=== PATIENT | female | born 1980 | race Caucasian/White ===

== ENCOUNTER 2016-07-01 10:34 | Emergency (ER) | payer MEDICAID ==
[~2016-07-01] VITALS: Ht 180.3 cm; Wt 80.0 kg
[~2016-07-01 10:34] MED LIST: DILA100C PO; GABA300C3 PO; PAXI30TA7 PO; TRAZ300T2 PO
[2016-07-01 10:36] VITALS: BP 132/73; PULSE 116; RESP 18; TEMP 98.2; O2SAT 97
[2016-07-01] MEDS ORDERED: VANCOMYCIN INJ 1,000 MG in SODIUM CHLOR 0.9% 250 ML INJ 250 ML IV ONE (11:30)
[2016-07-01] MEDS ORDERED: PAXI30TA7 PO (11:32)
--- NOTE | 2016-07-01 11:33 | PD ---
HPI Chief Complaint: Skin Problem Time Seen by Provider: 11:26 Travel History International Travel<30 days: No Contact w/Intl Traveler<30days: No Traveled to known affect area: No History of Present Illness HPI This patient complains of infection in her left forearm. She is an IV drug abuser that injected some cocaine into her arm and missed her vein. It became reddened and painful and then a boil popped up yesterday. She denies fever. No active drainage. Other than depression she denies any other health problems. Symptoms severity is moderate. Duration 3 days. No alleviating factors. PFSH Past Medical History Blood Disorders: No Bipolar Disorder: Yes Anxiety: Yes Depression: Yes Diabetes: No Diminished Hearing: No Genitourinary: Yes Hypertension: Yes Kidney Stones: Yes Musculoskeletal: Yes (SCOLIOSIS, spinal stenosis) Neurologic: Yes Psychiatric: Yes Immunizations Current: Yes Migraines: Yes Myocardial Infarction: No Seizures: Yes (last seizure 10/16/14) ?: Not LMP: 06/10/16 : 1 Para: 1 Past Surgical History Genitourinary Surgery: Yes (shunt to kidney placed and removed) Social History Alcohol Use: Yes (OCCASIONALLY) Tobacco Use: Yes (1 PPD) Substance Use: No Allergies-Medications (Allergen,Severity, Reaction): Coded Allergies: Dust (Verified Allergy, Severe, 07/01/16) Cultivated Oat Pollen (Verified Allergy, Intermediate, 07/01/16) Cipro (Verified Adverse Reaction, Severe, REACTS WITH HER DEPRESSION MEDS , 07/01/16) Prednisone (Verified Adverse Reaction, Severe, MAKES HER DEPRESSION WORSE , 07/01/16) Benadryl (Verified Adverse Reaction, Intermediate, sleepy , 07/01/16) denies any problems Reported Meds & Prescriptions Reported Meds & Active Scripts Active Doxycycline Hyclate 100 Mg Cap 100 Mg PO BID Bactrim DS (Sulfamethoxazole-Trimethoprim) 800-160 Mg Tab 1 Tab PO BID Reported Paxil (Paroxetine HCl) 30 Mg Tab 30 Mg PO DAILY Review of Systems General / Constitutional: No: Fever Eyes: No: Visual changes HENT: No: Headaches Cardiovascular: No: Chest Pain or Discomfort Respiratory: No: Shortness of Breath Gastrointestinal: No: Abdominal Pain Genitourinary: No: Dysuria Musculoskeletal: Positive: Pain Skin: No Rash Neurologic: No: Weakness Psychiatric: Positive: Substance Abuse, No: Depression Endocrine: No: Polydipsia Hematologic/Lymphatic: No: Easy Bruising Physical Exam Narrative GENERAL: Well-nourished, well-developed patient with left forearm infection. SKIN: Warm and dry. HEAD: Atraumatic. Normocephalic. EYES: Pupils equal and round. No scleral icterus. No injection or drainage. ENT: No nasal bleeding or discharge. Mucous membranes pink and moist. NECK: Trachea midline. No JVD. CARDIOVASCULAR: Regular rate and rhythm. No murmur appreciated. RESPIRATORY: No accessory muscle use. Clear to auscultation. Breath sounds equal bilaterally. GASTROINTESTINAL: Abdomen soft, non-tender, nondistended. Hepatic and splenic margins not palpable. MUSCULOSKELETAL: No obvious deformities. No clubbing. No cyanosis. There is macular erythema and warmth and tenderness of the left proximal forearm and an abscess there as well. No active drainage but there is a fluctuant region. No ascending lymphangitis or tenseness of compartments. Neurovascularly intact NEUROLOGICAL: Awake and alert. No obvious cranial nerve deficits. Motor grossly within normal limits. Normal speech. PSYCHIATRIC: Appropriate mood and affect; insight and judgment poor. Data Data Last Documented VS Vital Signs Date Time Temp Pulse Resp B/P Pulse Ox O2 Delivery O2 Flow Rate FiO2 07/01/16 11:28 18 07/01/16 10:36 98.2 116 132/73 97 Orders Vancomycin Inj (Vancomycin Inj) (07/01/16 11:30) Iv Access Insert/Monitor (07/01/16 11:26) Complete Blood Count With Diff (07/01/16 11:26) Basic Metabolic Panel (Bmp) (07/01/16 11:26) Oxycodone-Acetamin 5-325 Mg (Percocet (07/01/16 12:45) Labs Laboratory Tests Test 07/01/16 12:02 White Blood Count 12.0 TH/MM3 Red Blood Count 4.40 MIL/MM3 Hemoglobin 14.4 GM/DL Hematocrit 42.7 % Mean Corpuscular Volume 97.0 FL Mean Corpuscular Hemoglobin 32.7 PG Mean Corpuscular Hemoglobin 33.8 % Concent Red Cell Distribution Width 13.2 % Platelet Count 211 TH/MM3 Mean Platelet Volume 8.9 FL Neutrophils (%) (Auto) 76.6 % Lymphocytes (%) (Auto) 13.7 % Monocytes (%) (Auto) 7.7 % Eosinophils (%) (Auto) 1.5 % Basophils (%) (Auto) 0.5 % Neutrophils # (Auto) 9.2 TH/MM3 Lymphocytes # (Auto) 1.6 TH/MM3 Monocytes # (Auto) 0.9 TH/MM3 Eosinophils # (Auto) 0.2 TH/MM3 Basophils # (Auto) 0.1 TH/MM3 CBC Comment DIFF FINAL Differential Comment Sodium Level 139 MEQ/L Potassium Level 4.2 MEQ/L Chloride Level 105 MEQ/L Carbon Dioxide Level 28.1 MEQ/L Anion Gap 6 MEQ/L Blood Urea Nitrogen 13 MG/DL Creatinine 0.75 MG/DL Estimat Glomerular Filtration 88 ML/MIN Rate Random Glucose 82 MG/DL Calcium Level 8.7 MG/DL [facility] Medical Decision Making Medical Screen Exam Complete: Yes Emergency Medical Condition: Yes Medical Record Reviewed: Yes Differential Diagnosis abscess, cellulitis, lymphangitis Narrative Course I have reviewed the patient's electronic medical record. This patient has a left forearm abscess from IV drug injection. IV placed I gave her 1 g IV vancomycin CBC is normal other than minimal leukocytosis 12,000 Metabolic profile is normal EDI Dey performed incision and drainage on the abscess. Specimen was sent for culture On reassessment she is doing well. I gave HER-2 pain pills. I don't feel she requires inpatient care at this time. I wrote her 10 days of both doxycycline and Bactrim DS and she will return in 48 hours if she has not seen improvement. No clinical suspicion of endocarditis. She has no fever or chest symptoms Diagnosis Primary Impression: Abscess of left arm Additional Impression: IV drug abuse Additional Instructions: The patient was advised to follow up with their physician and return if they worsen. The patient was warned about potential sedation for the medications they will receive on prescription. Stop injecting drugs, consider [facility] services Med/Other Pt SpecificInfo: Prescription(s) given Scripts Doxycycline Hyclate 100 Mg [id number] Mg PO BID #20 CAP Ref 0 Prov:Suresh Chavez MD 07/01/16 Sulfamethoxazole-Trimethoprim (Bactrim DS)800-160 Mg Tab1 Tab PO BID #20 TAB Ref 0 Prov:Suresh Chavez MD 07/01/16 Disposition: 01 DISCHARGE HOME Condition: Stable Suresh Chavez MD Jul 01, 2016 11:33
[2016-07-01 12:34] LABS: AUTOMATED NEUTROPHIL # 9.2 TH/MM3 (1.8-7.7); BASOPHIL # 0.1 TH/MM3 (0-0.2); BASOPHIL % 0.5 % (0.0-2.0); EOSINOPHIL # 0.2 TH/MM3 (0-0.4); EOSINOPHIL % 1.5 % (0.0-4.0); HEMATOCRIT 42.7 % (35.0-46.0); HEMO FLAGS DIFF FINAL; LYMPH % 13.7 % (9.0-44.0); LYMPHOCYTE # 1.6 TH/MM3 (1.0-4.8); MEAN CORPUSCULAR HEMOGLOBIN 32.7 PG (27.0-34.0); MEAN CORPUSCULAR HGB CONC 33.8 % (32.0-36.0); MONO % 7.7 % (0.0-8.0); NEUT % 76.6 % (16.0-70.0); PLATELET COUNT 211 TH/MM3 (150-450); RED CELL DISTRIBUTION WIDTH 13.2 % (11.6-17.2)
[2016-07-01] MEDS ORDERED: oxyCODONE/ACETAMINOPHEN 5 MG/325 MG TAB PO ONE (12:45)
[2016-07-01 12:47] LABS: BICARBONATE 28.1 MEQ/L (21.0-32.0)
[2016-07-01 12:48] LABS: POTASSIUM 4.2 MEQ/L (3.5-5.1)
[2016-07-01] MEDS ORDERED: BACT800T5 PO (13:29)
[2016-07-01] MEDS ORDERED: DOXY100C PO (13:29)
[2016-07-01] MEDS ORDERED: TYLETAB34 PO (13:44)
[2016-07-01 13:50] VITALS: RESP 18
--- NOTE | 2016-07-01 18:49 | PD ---
Physical Exam Date Seen by Provider: Jul 01, 2016 Time Seen by Provider: 11:30 Narrative 35 yr old female seen by Dr. Chavez. I was asked to perform I& D of abscess left forearm. Data Data Last Documented VS Vital Signs Date Time Temp Pulse Resp B/P Pulse Ox O2 Delivery O2 Flow Rate FiO2 07/01/16 13:50 18 07/01/16 10:36 98.2 116 132/73 97 Orders Vancomycin Inj (Vancomycin Inj) (07/01/16 11:30) Iv Access Insert/Monitor (07/01/16 11:26) Complete Blood Count With Diff (07/01/16 11:26) Basic Metabolic Panel (Bmp) (07/01/16 11:26) Oxycodone-Acetamin 5-325 Mg (Percocet (07/01/16 12:45) Labs Laboratory Tests Test 07/01/16 12:02 White Blood Count 12.0 TH/MM3 Red Blood Count 4.40 MIL/MM3 Hemoglobin 14.4 GM/DL Hematocrit 42.7 % Mean Corpuscular Volume 97.0 FL Mean Corpuscular Hemoglobin 32.7 PG Mean Corpuscular Hemoglobin 33.8 % Concent Red Cell Distribution Width 13.2 % Platelet Count 211 TH/MM3 Mean Platelet Volume 8.9 FL Neutrophils (%) (Auto) 76.6 % Lymphocytes (%) (Auto) 13.7 % Monocytes (%) (Auto) 7.7 % Eosinophils (%) (Auto) 1.5 % Basophils (%) (Auto) 0.5 % Neutrophils # (Auto) 9.2 TH/MM3 Lymphocytes # (Auto) 1.6 TH/MM3 Monocytes # (Auto) 0.9 TH/MM3 Eosinophils # (Auto) 0.2 TH/MM3 Basophils # (Auto) 0.1 TH/MM3 CBC Comment DIFF FINAL Differential Comment Sodium Level 139 MEQ/L Potassium Level 4.2 MEQ/L Chloride Level 105 MEQ/L Carbon Dioxide Level 28.1 MEQ/L Anion Gap 6 MEQ/L Blood Urea Nitrogen 13 MG/DL Creatinine 0.75 MG/DL Estimat Glomerular Filtration 88 ML/MIN Rate Random Glucose 82 MG/DL Calcium Level 8.7 MG/DL [facility] Medical Record Reviewed: Yes Supervised Visit with NAYELI: Yes Differential Diagnosis abscess, cellulitis Narrative Course 35 yr old IV drug user with left forearm abscess. I was asked to perform I& D Procedures Procedure Narrative SKIN: There is an indurated area in the left forearm which measures about 3 cm in diameter. It is fluctuant.. There is a zone of inflammation around it but no lymphangitis. Area was cleaned with betadine and 3 cc of 1% lidocaine used for local infiltration. After appropriate anesthesia, 11 blade was used to make small incision in the abscess and over 7 cc of purulent fluid was expelled from the site. I collected a sample for culture. Area was then cleaned with saline and sterile dressing was applied. I discussed proper cleaning with the patient. I also instructed her on how to apply clean dressings at least twice a day. Diagnosis Primary Impression: Abscess of left arm Additional Impression: IV drug abuse Patient Instructions: General Instructions, Abscess (ED) Departure Forms: Tests/Procedures Additional Instruction: The patient was advised to follow up with their physician and return if they worsen. The patient was warned about potential sedation for the medications they will receive on prescription. Stop injecting drugs, consider [facility] services Scripts Acetaminophen-Codeine (Tylenol-Codeine #3)300-30 mg Tab1 Tab PO Q6HR PRN (PAIN) #12 TAB Ref 0 Prov:Suresh Chavez MD 07/01/16 Doxycycline Hyclate 100 Mg [id number] Mg PO BID #20 CAP Ref 0 Prov:Suresh Chavez MD 07/01/16 Sulfamethoxazole-Trimethoprim (Bactrim DS)800-160 Mg Tab1 Tab PO BID #20 TAB Ref 0 Prov:Suresh Chavez MD 07/01/16 Disposition: 01 DISCHARGE HOME Condition: Stable Yissel Johnson Jul 01, 2016 18:49
== END 2016-07-01 13:49 | disposition home or self-care (01) ==
LOC: NEPD 10:34
DX: L02.414 Cutaneous abscess of left upper limb (principal); F19.10 Other psychoactive substance abuse, uncomplicated; I10 Essential (primary) hypertension; F17.200 Nicotine dependence, unspecified, uncomplicated; Z87.448 Personal history of other diseases of urinary system; Z87.442 Personal history of urinary calculi; Z87.39 Personal history of other diseases of the musculoskeletal system and connective tissue; Z86.69 Personal history of other diseases of the nervous system and sense organs; Z86.59 Personal history of other mental and behavioral disorders
CPT/HCPCS: 10060; 80048; 85025; 96365; 99283; J3370; J7050

== ENCOUNTER 2016-10-08 17:40 | Observation (INO) | payer MEDICAID ==
[~2016-10-08] VITALS: Ht 180.3 cm; Wt 91.0 kg
[~2016-10-08 17:40] MED LIST changes: +BACT800T5 PO; -DILA100C PO; +DOXY100C PO; -GABA300C3 PO; -TRAZ300T2 PO; +TYLETAB34 PO
[2016-10-08 17:43] VITALS: PULSE 96; RESP 14; O2SAT 100
[2016-10-08] MEDS ORDERED: NEUR100C PO (17:50)
[2016-10-08] MEDS ORDERED: SODIUM CHLORIDE 0.9% FLUSH 10 ML FLUSH IVF PRN (18:00)
[2016-10-08] MEDS ORDERED: SODIUM CHLOR 0.9% 1000 ML INJ 1,000 ML IV ONE (18:15)
--- NOTE | 2016-10-08 18:15 | PD ---
HPI Chief Complaint: OD/ Ingestion Time Seen by Provider: 18:07 Travel History International Travel<30 days: No Contact w/Intl Traveler<30days: No Traveled to known affect area: No History of Present Illness HPI Patient comes in via EMS after being found unresponsive by her 12-year-old daughter at home. Patient was given Narcan in the field by EMS, which allowed the patient to wake up and have a GCS of 15. Patient reports that her boyfriend and her got to the vehicle with a male where she did "5 lines of heroin and then a bump". Patient states male then gave him additional heroin to go home. Patient states that when she got home they did additional heroin. Patient denies any chest pain, shortness breath, headache, nausea, vomiting, abdominal pain, or other medical concerns at this time medically. Patient denies any intentional overdose or suicidal ideations. Patient states was purely accidental overdose. PFSH Past Medical History Blood Disorders: No Bipolar Disorder: Yes Anxiety: Yes Depression: Yes Diabetes: No Diminished Hearing: No Genitourinary: Yes Hypertension: Yes Kidney Stones: Yes Musculoskeletal: Yes (SCOLIOSIS, spinal stenosis) Neurologic: Yes Psychiatric: Yes Immunizations Current: Yes Migraines: Yes Myocardial Infarction: No Seizures: Yes (last seizure 10/16/14) ?: Not LMP: 09/30/16 : 1 Para: 1 Past Surgical History Genitourinary Surgery: Yes (shunt to kidney placed and removed) Social History Alcohol Use: Yes (OCCASIONALLY) Tobacco Use: Yes (1 PPD) Substance Use: Yes (cocaine shooting up;heroin weekly) Allergies-Medications (Allergen,Severity, Reaction): Coded Allergies: Dust (Verified Allergy, Severe, 10/08/16) Cultivated Oat Pollen (Verified Allergy, Intermediate, 10/08/16) Cipro (Verified Adverse Reaction, Severe, REACTS WITH HER DEPRESSION MEDS , 10/08/16) Prednisone (Verified Adverse Reaction, Severe, MAKES HER DEPRESSION WORSE , 10/08/16) Benadryl (Verified Adverse Reaction, Intermediate, sleepy , 10/08/16) denies any problems Reported Meds & Prescriptions Reported Meds & Active Scripts Active Reported Neurontin (Gabapentin) Unknown Strength Cap Unknown Dose PO HS Paxil (Paroxetine HCl) 30 Mg Tab 30 Mg PO DAILY Review of Systems Except as stated in HPI: all other systems reviewed are Neg Physical Exam Narrative GENERAL: Well-developed, overly nourished, in no acute distress, and non-ill appearing. SKIN: Focused skin assessment warm and dry. HEAD: Atraumatic. Normocephalic. EYES: Pupils equal and round. EOMI. No scleral icterus. No injection or drainage. ENT: No nasal bleeding or discharge. Mucous membranes pink and moist. NECK: Trachea midline. No JVD. Supple. No nuclear rigidity. CARDIOVASCULAR: Regular rate and rhythm. No murmur appreciated. RESPIRATORY: No accessory muscle use. No respiratory distress. Clear to auscultation. Breath sounds equal bilaterally. GASTROINTESTINAL: Abdomen soft, non-tender, nondistended. Hepatic and splenic margins not palpable. No pulsatile mass. MUSCULOSKELETAL: No obvious deformities. No clubbing. No cyanosis. No edema. Full range of motion. NEUROLOGICAL: Awake and alert. No obvious cranial nerve deficits. Motor grossly within normal limits. Normal speech. PSYCHIATRIC: Appropriate mood and affect; insight and judgment normal. Data Data Last Documented VS Vital Signs Date Time Temp Pulse Resp B/P Pulse Ox O2 Delivery O2 Flow Rate FiO2 10/08/16 18:40 14 98 Nasal Cannula 2 10/08/16 17:43 96 Orders Electrocardiogram (10/08/16 ) Iv Access Insert/Monitor (10/08/16 17:59) Ecg Monitoring (10/08/16 17:59) Oximetry (10/08/16 17:59) Sodium Chloride 0.9% Flush (Ns Flush) (10/08/16 18:00) Sodium Chlor 0.9% 1000 Ml Inj (Ns 1000 M (10/08/16 18:15) Naloxone Inj (Narcan Inj) (10/08/16 19:15) Basic Metabolic Panel (Bmp) (10/08/16 19:03) Complete Blood Count With Diff (10/08/16 19:03) Magnesium (Mg) (10/08/16 19:03) Naloxone Inj (Narcan Inj) (10/08/16 19:45) End Tidal Co2 (Etco2) (10/08/16 ) Admit Order (Ed Use Only) (10/08/16 20:08) Labs Laboratory Tests Test 10/08/16 17:55 White Blood Count 6.7 TH/MM3 Red Blood Count 3.82 MIL/MM3 Hemoglobin 12.2 GM/DL Hematocrit 37.5 % Mean Corpuscular Volume 98.0 FL Mean Corpuscular Hemoglobin 31.8 PG Mean Corpuscular Hemoglobin 32.5 % Concent Red Cell Distribution Width 13.5 % Platelet Count 192 TH/MM3 Mean Platelet Volume 9.3 FL Neutrophils (%) (Auto) 68.9 % Lymphocytes (%) (Auto) 23.6 % Monocytes (%) (Auto) 5.6 % Eosinophils (%) (Auto) 1.5 % Basophils (%) (Auto) 0.4 % Neutrophils # (Auto) 4.6 TH/MM3 Lymphocytes # (Auto) 1.6 TH/MM3 Monocytes # (Auto) 0.4 TH/MM3 Eosinophils # (Auto) 0.1 TH/MM3 Basophils # (Auto) 0.0 TH/MM3 CBC Comment DIFF FINAL Differential Comment Sodium Level 142 MEQ/L Potassium Level 3.5 MEQ/L Chloride Level 107 MEQ/L Carbon Dioxide Level 23.6 MEQ/L Anion Gap 11 MEQ/L Blood Urea Nitrogen 18 MG/DL Creatinine 0.81 MG/DL Estimat Glomerular Filtration 81 ML/MIN Rate Random Glucose 122 MG/DL Calcium Level 8.0 MG/DL Magnesium Level 2.5 MG/DL MDM Medical Decision Making Medical Screen Exam Complete: Yes Emergency Medical Condition: Yes Interpretation(s) EKG reviewed by Dr. Boss shows sinus rhythm with ventricular rate of 98. No STEMI. Differential Diagnosis Accidental overdose, intentional overdose, arrhythmia, other Narrative Course Patient was seen and examined. EKG was obtained and reviewed. Patient was placed on a monitor and IV was established. Patient will be monitored in the ER until 2200 when Narcan will warn off for stability. 1929 patient is reevaluated by Dr. Cruz found to be slightly less responsive O2 slipping into the upper 80s low 90s. Dr. Cruz ordered additional Narcan. Patient will be admitted pending labs for observation. Physician Communication Physician Communication [address] Abraham, resident on-call, who is agreeable to admit patient for Dr. Membreno. Diagnosis Primary Impression: Overdose Qualified Code: T50.901A - Overdose, accidental or unintentional, initial encounter Admitting Information Admitting Physician Requests: Observation Condition: Stable Kevan Zhang October 08, 2016 18:15 Kevan Zhang October 08, 2016 18:15
[2016-10-08 18:40] VITALS: RESP 14; O2SAT 98
[2016-10-08 19:00] VITALS: BP 91/51; PULSE 82; RESP 14; O2SAT 94
[2016-10-08] MEDS ORDERED: NALOXONE HCL 0.4 MG/ML AMP IV PUSH ONE ×2 (19:15→19:45)
[2016-10-08 19:27] LABS: AUTOMATED NEUTROPHIL # 4.6 TH/MM3 (1.8-7.7); BASOPHIL % 0.4 % (0.0-2.0); EOSINOPHIL # 0.1 TH/MM3 (0-0.4); EOSINOPHIL % 1.5 % (0.0-4.0); HEMATOCRIT 37.5 % (35.0-46.0); HEMO FLAGS DIFF FINAL; LYMPH % 23.6 % (9.0-44.0); LYMPHOCYTE # 1.6 TH/MM3 (1.0-4.8); MEAN CORPUSCULAR HEMOGLOBIN 31.8 PG (27.0-34.0); MEAN CORPUSCULAR HGB CONC 32.5 % (32.0-36.0); MONO % 5.6 % (0.0-8.0); NEUT % 68.9 % (16.0-70.0); PLATELET COUNT 192 TH/MM3 (150-450); RED BLOOD COUNT 3.82 MIL/MM3 (4.00-5.30); RED CELL DISTRIBUTION WIDTH 13.5 % (11.6-17.2); WHITE BLOOD COUNT 6.7 TH/MM3 (4.0-11.0)
--- NOTE | 2016-10-08 19:42 | PD ---
Physical Exam Narrative I, Dr. Cruz, have reviewed the advance practice practitioner's documentation and am in agreement, met with the patient face to face, made the diagnosis, and the medical decision making was done by me. *My assessment and Findings: Opiate overdose Pt was reevaluated at bedside and RR is 8 so 0.4mg narcan IV given. Pt was awake but quickly went back to RR of 8 so another 0.4mg narcan IV ordered. Pt will be admitted for observation for opiate overdose. Data Data Last Documented VS Vital Signs Date Time Temp Pulse Resp B/P Pulse Ox O2 Delivery O2 Flow Rate FiO2 10/08/16 20:00 80 14 93/55 96 Nasal Cannula 2 Orders Electrocardiogram (10/08/16 ) Iv Access Insert/Monitor (10/08/16 17:59) Ecg Monitoring (10/08/16 17:59) Oximetry (10/08/16 17:59) Sodium Chloride 0.9% Flush (Ns Flush) (10/08/16 18:00) Sodium Chlor 0.9% 1000 Ml Inj (Ns 1000 M (10/08/16 18:15) Naloxone Inj (Narcan Inj) (10/08/16 19:15) Basic Metabolic Panel (Bmp) (10/08/16 19:03) Complete Blood Count With Diff (10/08/16 19:03) Magnesium (Mg) (10/08/16 19:03) Naloxone Inj (Narcan Inj) (10/08/16 19:45) End Tidal Co2 (Etco2) (10/08/16 ) Admit Order (Ed Use Only) (10/08/16 20:08) Labs Laboratory Tests Test 10/08/16 17:55 White Blood Count 6.7 TH/MM3 Red Blood Count 3.82 MIL/MM3 Hemoglobin 12.2 GM/DL Hematocrit 37.5 % Mean Corpuscular Volume 98.0 FL Mean Corpuscular Hemoglobin 31.8 PG Mean Corpuscular Hemoglobin 32.5 % Concent Red Cell Distribution Width 13.5 % Platelet Count 192 TH/MM3 Mean Platelet Volume 9.3 FL Neutrophils (%) (Auto) 68.9 % Lymphocytes (%) (Auto) 23.6 % Monocytes (%) (Auto) 5.6 % Eosinophils (%) (Auto) 1.5 % Basophils (%) (Auto) 0.4 % Neutrophils # (Auto) 4.6 TH/MM3 Lymphocytes # (Auto) 1.6 TH/MM3 Monocytes # (Auto) 0.4 TH/MM3 Eosinophils # (Auto) 0.1 TH/MM3 Basophils # (Auto) 0.0 TH/MM3 CBC Comment DIFF FINAL Differential Comment Sodium Level 142 MEQ/L Potassium Level 3.5 MEQ/L Chloride Level 107 MEQ/L Carbon Dioxide Level 23.6 MEQ/L Anion Gap 11 MEQ/L Blood Urea Nitrogen 18 MG/DL Creatinine 0.81 MG/DL Estimat Glomerular Filtration 81 ML/MIN Rate Random Glucose 122 MG/DL Calcium Level 8.0 MG/DL Magnesium Level 2.5 MG/DL Total Creatine Kinase 202 U/L Creatine Kinase MB 2.0 NG/ML Creatine Kinase MB % 1.0 % Troponin I LESS THAN 0.02 NG/ML Acetaminophen Level 2.4 MCG/ML Ethyl Alcohol Level LESS THAN 3 MG/DL MDM Supervised Visit with NAYELI: Yes Diagnosis Primary Impression: Opiate overdose Qualified Code: T40.604A - Opiate overdose, undetermined intent, initial encounter Admitting Information Admitting Physician Requests: Observation Gertrudis Cruz DO October 08, 2016 19:41
[2016-10-08 19:54] LABS: BICARBONATE 23.6 MEQ/L (21.0-32.0); MAGNESIUM 2.5 MG/DL (1.5-2.5); POTASSIUM 3.5 MEQ/L (3.5-5.1)
[2016-10-08 20:00] VITALS: BP 93/55; PULSE 80; RESP 14; O2SAT 96
--- NOTE | 2016-10-08 20:36 | HHI.HP ---
[facility] Service Family Medicine Primary Care Physician Juan Daniel Huffman MD Admission Diagnosis accidental overdose Diagnoses: International Travel<30 Days: No Contact w/Intl Traveler<30days: No Known Affected Area: No History of Present Illness Patient is a 35-year-old female with unknown PMH but a history of extensive IV drug use who presents to the ED after opiate overdose. Patient does not provide history given she is somnolent, but does note that she is not in pain and that she "was stupid." Per EVAC report and ER documentation, patient was found by her 12-year-old daughter unresponsive at home. She was given 2.8 mg Narcan in the field, and was given 0.4 mg Narcan 2 in the ED. After Narcan administration , patient was alert. At time of initial ED evaluation, she denied chest pain, shortness of breath, headache, nausea, vomiting, abdominal pain, and other medical concerns. She also denied intent at that time. At this evaluation, patient only stated states that she "was stupid" and that she "drank too much." She also endorses that she uses IV drugs and injects into the arms only. Family history is not obtained given patient condition. Review of Systems ROS Limitations: Clinical Condition, Intoxication Respiratory: DENIES: Shortness of breath Cardiovascular: DENIES: Chest pain Past Family Social History Past Medical History Patient states she has a history of seizures and takes Keppra. Per EMR, last seizure was September 2014 Per EMR, she has bipolar disorder, depression, anxiety, hypertension, history of stones, and history of migraines Past Surgical History Per EMR, patient had a stent placed and removed Reported Medications Reported Meds & Active Scripts Active Reported Neurontin (Gabapentin) Unknown Strength Cap Unknown Dose PO HS Paxil (Paroxetine HCl) 30 Mg Tab 30 Mg PO DAILY (Patient states she takes Keppra but does not state dose or last use) Allergies: Coded Allergies: Dust (Verified Allergy, Severe, 10/08/16) Cultivated Oat Pollen (Verified Allergy, Intermediate, 10/08/16) Cipro (Verified Adverse Reaction, Severe, REACTS WITH HER DEPRESSION MEDS , 10/08/16) Prednisone (Verified Adverse Reaction, Severe, MAKES HER DEPRESSION WORSE , 10/08/16) Benadryl (Verified Adverse Reaction, Intermediate, sleepy , 10/08/16) denies any problems Active Ordered Medications Inpatient Medications Acetaminophen (Tylenol) 650 mg Q4H PRN PO TEMP > 100.4; Start 10/08/16 at 20:45 Heparin Sodium (Porcine) (Heparin Inj) 5,000 units Q12H SQ ; Start 10/08/16 at 20:45; Status UNV Naloxone HCl (Narcan Inj) 0.4 mg UNSCH PRN IV SEE LABEL COMMENTS; Start at 20:45 Naloxone HCl 0.4 mg 0.4 mg ONCE ONCE IV PUSH Last administered on 10/08/16t 19 :43; Start 10/08/16 at 19:45; Stop 10/08/16 at 19:46; Status DC Ondansetron HCl (Zofran Inj) 4 mg Q6H PRN IVP NAUSEA OR VOMITING; Start at 20:45 Sodium Chloride (NS 1000 ml Inj) 1,000 ml @ 100 mls/hr Q10H IV ; Start at 21:00 Sodium Chloride (NS Flush) 2 ml BID IV FLUSH ; Start 10/08/16 at 21:00 Family History Not obtained due to patient condition Social History Patient has a history of IV drug use, reportedly using heroin and alcohol today She has a 12-year-old daughter who found her unresponsive today Physical Exam Vital Signs Vital Signs Date Time Temp Pulse Resp B/P Pulse Ox O2 Delivery O2 Flow Rate FiO2 10/08/16 18:40 14 98 Nasal Cannula 2 10/08/16 17:43 96 14 100 Physical Exam GENERAL: Patient is a well-nourished, unkempt female lying in bed sleeping. She is arousable to light sternal rub but not to voice. She has wet the bed. SKIN: Cool and dry. The left arm has a 1 inch area of sclerotic brachial vein, multiple track chavez. The right arm has multiple scratches and track chavez HEAD: Atraumatic. Normocephalic. EYES: Pupils equal and round, approximately 4 mm, reactive. No scleral icterus. No injection or drainage. ENT: No nasal bleeding or discharge. Mucous membranes pink and moist. Uvula is midline and tonsils are without exudate or erythema NECK: Trachea midline. No JVD. No lymphadenopathy noted. CARDIOVASCULAR: Regular rate and rhythm. No murmurs auscultated. RESPIRATORY: No accessory muscle use. Pressures were rate approximately 11 with sleeping, approximately 16 when awake. Clear to auscultation without crackles or wheezes. GASTROINTESTINAL: Abdomen soft, non-tender, nondistended. Bowel sounds are normal in all quadrants, not hypoactive. Hepatic and splenic margins not palpable. MUSCULOSKELETAL: Extremities without clubbing, cyanosis, or edema. No obvious deformities. NEUROLOGICAL: Awake and alert. Oriented to place and context. Unable to perform cranial nerve exam due to patient cooperation. Patient is spontaneously moving all extremities and cooperates with lung auscultation on the back. Five out of 5 muscle strength in advertising display rotator strength and lower extremities. Speech appears slurred. PSYCHIATRIC: Unable to fully assess. Patient states she was "stupid". She does not answer whether she had suicidal intent with heroin use during my interview but denied it during ED examination Laboratory Laboratory Tests Test 10/08/16 17:55 White Blood Count 6.7 Red Blood Count 3.82 Hemoglobin 12.2 Hematocrit 37.5 Mean Corpuscular Volume 98.0 Mean Corpuscular Hemoglobin 31.8 Mean Corpuscular Hemoglobin 32.5 Concent Red Cell Distribution Width 13.5 Platelet Count 192 Mean Platelet Volume 9.3 Neutrophils (%) (Auto) 68.9 Lymphocytes (%) (Auto) 23.6 Monocytes (%) (Auto) 5.6 Eosinophils (%) (Auto) 1.5 Basophils (%) (Auto) 0.4 Neutrophils # (Auto) 4.6 Lymphocytes # (Auto) 1.6 Monocytes # (Auto) 0.4 Eosinophils # (Auto) 0.1 Basophils # (Auto) 0.0 CBC Comment DIFF FINAL Differential Comment Sodium Level 142 Potassium Level 3.5 Chloride Level 107 Carbon Dioxide Level 23.6 Anion Gap 11 Blood Urea Nitrogen 18 Creatinine 0.81 Estimat Glomerular Filtration 81 Rate Random Glucose 122 Calcium Level 8.0 Magnesium Level 2.5 Result Diagram: 10/08/16 1755 10/08/16 1755 Assessment and Plan Assessment and Plan 35-year-old female with a history of IV drug use and seizures who presents after being found unresponsive at home. She responded acutely to multiple doses of Narcan, receiving 2.8mg Narcan in the field, and 0.4mg x 2 in the ED. Code Status Full code Discussed Condition With Dr. Nancy Mcmahon, Dr. Bj Abraham Problem List: (1) Overdose Status: Acute Plan: Patient with a history of IVDU presenting after acute opiate overdose, receiving 2.8mg Narcan in the field, and 0.4mg x 2 in the ED. She is now stable but somnolent. Admit to observation for monitored withdrawal. EKG: normal sinus rhythm, rate 98, normal axis and normal intervals. Borderline prolonged QT. No obvious ST or Q-wave abnormalities Plan: * Place in observation. Likely she will withdraw in the short term if she only used heroin as it has a short half-life * Monitor vital signs closely * Continue O2 by nasal cannula, wean to room air with goal O2 sat greater than 92%. * Monitor respiratory status, currently R ~12 when sleeping, R 16 when awake. Saturations 99% on nasal cannula and room air. If evidence of respiratory failure arises, will transfer to [facility]. * Cardiac telemetry given toxin ingestion * Isotonic IV fluid at 100 mL per hour (patient appears well-hydrated but is NPO ) * Narcan 0.4 mg every 2 minutes when necessary for respiratory depression or hypotension * Trend cardiac enzymes including CK-MB * Ordered acetaminophen, EtOH, salicylates, UDS * Initial labs unremarkable, will repeat labs in the morning * There are no signs of infectious processes at this time based on physical exam and vital signs, will defer this workup with low threshold for obtaining blood cultures, CXR, etc. if indicated (2) IV drug abuse Status: Acute Plan: Chronic, multiple ED visits for IVDU-related infections or overdose. Plan: Telephone Solicitor when more awake on effects of drug use, offer resources Case mgmt consulted to assist with management and discharge planning Per EMR, she is on gabapentin and Paxil, unknown dose and unknown last use. Will hold both in addition to reported Keppra (3) History of seizure Status: Chronic Plan: Per patient report. She states she was on Keppra but this is not indicated in most recent EMR records from 06/2016. Plan: * Bedrest * Seizure precautions * Fall precautions * Ativan is ordered under [facility] protocol * Keppra level ordered (4) Fluids/Electrolytes/Nutrition/Prophylaxis Status: Acute Plan: Fluids: NS @ 100ml/hr Electrolytes: monitor and replete as needed Nutrition: NPO DVT Prophylaxis: Heparin 5000U subq q12hr/bilateral SCDs GI Prophylaxis: Not indicated Problem Qualifiers (1) Overdose: Qualified Code: T50.901A - Overdose, accidental or unintentional, initial encounter Amanda Garcia MD R1 October 08, 2016 20:36
[2016-10-08] MEDS ORDERED: NALOXONE HCL 0.4 MG/ML AMP IV PRN (20:45)
[2016-10-08] MEDS ORDERED: SODIUM CHLORIDE 0.9% FLUSH 10 ML FLUSH IV FLUSH PRN (20:45)
[2016-10-08] MEDS ORDERED: ACETAMINOPHEN 325 MG TAB PO PRN (20:45)
[2016-10-08] MEDS ORDERED: ONDANSETRON HCL 4 MG/2 ML VIAL IVP PRN (20:45)
[2016-10-08 21:00] VITALS: BP 93/55; PULSE 80; RESP 16; O2SAT 99
[2016-10-08] MEDS ORDERED: NALOXONE HCL 0.4 MG/ML AMP IV PUSH PRN (21:00)
[2016-10-08] MEDS ORDERED: SODIUM CHLORIDE 0.9% FLUSH 10 ML FLUSH IV FLUSH SCH (21:00)
[2016-10-08] MEDS: HEPARIN SODIUM - SQ 10,000 UNITS/ML VIAL SQ SCH (21:00)
[2016-10-08] MEDS ORDERED: LORazepam 1 MG TAB PO PRN (21:15)
[2016-10-08] MEDS ORDERED: FLUMAZENIL 0.5 MG/5 ML VIAL IV PUSH PRN (21:15)
[2016-10-08] MEDS ORDERED: HALOPERIDOL LACTATE 5 MG/ML AMP IM PRN (21:15)
[2016-10-08] MEDS ORDERED: LORazepam 2 MG TAB PO PRN (21:15)
[2016-10-08] MEDS ORDERED: LORazepam 2 MG/ML VIAL IV PUSH PRN ×3 (21:15)
[2016-10-08 21:19] LABS: ACETAMINOPHEN 2.4 MCG/ML (10.0-30.0); CREATINE KINASE 202 U/L (26-192)
[2016-10-08] MEDS: SODIUM CHLOR 0.9% 1000 ML INJ 1,000 ML IV SCH (22:02)
[2016-10-08] MEDS ORDERED: MULTIVITAMIN INJ 10 ML, THIAMINE INJ 100 MG, FOLIC ACID INJ 1 MG in SODIUM CHLORID 0.9%... IV ONE (23:00)
[2016-10-09] VITALS (7 sets, daily range): BP systolic 91–109; BP diastolic 51–71; PULSE 58–86; RESP 14–18; TEMP 95.7–96.8; O2SAT 86–97
[2016-10-09 01:26] LABS: CREATINE KINASE 171 U/L (26-192)
[2016-10-09] MEDS: LORazepam 2 MG/ML VIAL IV PUSH PRN ×2 (02:51→05:43)
[2016-10-09 05:49] LABS: AUTOMATED NEUTROPHIL # 6.4 TH/MM3 (1.8-7.7); BASOPHIL % 0.4 % (0.0-2.0); EOSINOPHIL # 0.2 TH/MM3 (0-0.4); EOSINOPHIL % 1.7 % (0.0-4.0); HEMO FLAGS DIFF FINAL; LYMPH % 22.3 % (9.0-44.0); LYMPHOCYTE # 2.1 TH/MM3 (1.0-4.8); MEAN CELL VOLUME 97.9 FL (80.0-100.0); MEAN CORPUSCULAR HGB CONC 32.7 % (32.0-36.0); NEUT % 68.6 % (16.0-70.0); PLATELET COUNT 181 TH/MM3 (150-450); RED BLOOD COUNT 3.57 MIL/MM3 (4.00-5.30); RED CELL DISTRIBUTION WIDTH 13.8 % (11.6-17.2); WHITE BLOOD COUNT 9.4 TH/MM3 (4.0-11.0)
[2016-10-09 05:58] LABS: PROTHROMBIN TIME - PATIENT 11.1 SEC (9.8-11.6)
[2016-10-09 06:17] LABS: ANION GAP 6 MEQ/L (5-15); BICARBONATE 26.9 MEQ/L (21.0-32.0); BLOOD UREA NITROGEN 16 MG/DL (7-18); CHLORIDE 109 MEQ/L (98-107); CREATINE KINASE 181 U/L (26-192); GLOMERULAR FILTRATION RATE 127 ML/MIN (>89); SODIUM (NA) 142 MEQ/L (136-145)
[2016-10-09 06:18] LABS: POTASSIUM 4.2 MEQ/L (3.5-5.1)
[2016-10-09] MEDS: SODIUM CHLOR 0.9% 1000 ML INJ 1,000 ML IV SCH (07:00)
--- NOTE | 2016-10-09 07:48 | HHI.DCPOC ---
Discharge Care Plan Diagnosis: (1) IV drug abuse (2) Overdose (3) Opiate overdose (4) History of seizure Goals to Promote Your Health * To prevent worsening of your condition and complications * To maintain your health at the optimal level Directions to Meet Your Goals Take your medications as prescribed Follow your dietary instruction Follow activity as directed Keep your appointments as scheduled Take your immunizations and boosters as scheduled If your symptoms worsen call your PCP, if no PCP go to Urgent Care Center or Emergency Room Smoking is Dangerous to Your Health. Avoid second hand smoke Call the 24-hour hour crisis hotline for domestic abuse at Hilda Etienne MD October 09, 2016 07:47
[2016-10-09] MEDS: HEPARIN SODIUM - SQ 10,000 UNITS/ML VIAL SQ SCH (09:00)
--- NOTE | 2016-10-09 11:06 | HHI.FPPN ---
Subjective Remarks Ana Fisher is a 35yo lady with h/o seizure disorder, bipolar disorder, HTN, and h/o IV drug use admitted under observation after opiate overdose. She was apparently found unresponsive by her 12yo daughter who called 911. She received multiple doses of Narcan. For further details, please see resident H&P. This morning, she reports she feels back to normal. She She is maintaining oxygen saturations on room air. She denies drug use (although boyfriend who is also admitted to our team states that they smoked heroin) and states that she drank too much last night. She requests discharge home. ROS: + muscle aches. No SOB, no chest pain, no nausea, no vomiting, no abdominal pain. All other systems reviewed are negative. PMH/PSxH/SocHx/FamHx: Per resident H&P. Significant for: h/o IV drug use, seizure disorder, h/o kidney stones. She lives with her daughter who is healthy. Lives also with boyfriend. Objective Vitals Vital Signs Date Time Temp Pulse Resp B/P Pulse Ox O2 Delivery O2 Flow Rate FiO2 10/09/16 09:00 81 10/09/16 08:23 96.8 68 18 106/65 96 10/09/16 04:42 14 10/09/16 03:58 96.1 86 14 101/60 97 10/09/16 01:20 87 10/09/16 00:45 58 10/09/16 00:40 95.7 58 18 109/71 94 10/08/16 21:00 80 16 93/55 99 Nasal Cannula 2 10/08/16 20:00 80 14 93/55 96 Nasal Cannula 2 10/08/16 19:00 82 14 91/51 94 Nasal Cannula 2 10/08/16 18:40 14 98 Nasal Cannula 2 10/08/16 17:43 96 14 100 I/O 10/08/16 10/08/16 10/08/16 10/09/16 10/09/16 10/09/16 07:00 15:00 23:00 07:00 15:00 23:00 Intake Total 480 ml Balance 480 ml Intake Oral 480 ml # Voids 2 Result Diagram: 10/09/1651910/09/16519 Objective Remarks GENERAL: in NAD, no resp distress, nontoxic. HEENT: NCAT, EOMI, no scleral icterus, no conjunctival injection. MMM. NECK: Supple, no meningeal signs CV: RRR, S1 S2. No murmurs CHEST/PULM: CTAB, no crackles, no wheezes ABD/GI: +BS, soft, nontender, nondistended EXT: 2+ DP pulses. Track chavez noted. R antecubital fossa with scars consistent with prior infection/I&D. Scattered bruises on legs. NEURO: Awake, alert. Normal muscle tone. Grossly nonfocal SKIN: Bruises as above. Good skin turgor. No jaundice. PSYCH: Mood and affect are appropriate. Speech fluent. Does not appear to respond to internal stimuli. A/P Assessment and Plan 35-year-old female with a history of IV drug use and seizures who presents after being found unresponsive at home. She responded acutely to multiple doses of Narcan, receiving 2.8mg Narcan in the field, and 0.4mg x 2 in the ED. Discharge Planning Discharge home today. Pt counselled to avoid drug use. Hepatitis panel to be drawn - results will be pending at discharge. Attending Attestation Patient seen, examined, and discussed with resident team. Problem List: (1) Overdose Status: Acute Plan: Patient with a history of IVDU presenting after acute opiate overdose, receiving 2.8mg Narcan in the field, and 0.4mg x 2 in the ED. She is now stable but somnolent. Symptoms of overdose have resolved. Patient counselled to avoid drugs. DCF will be contacted, as she lives with her daughter and clearly had an overdose. (2) IV drug abuse Status: Chronic Plan: Chronic, multiple ED visits for IVDU-related infections or overdose. Pt denies current drug use, but significant other indicates otherwise. Record review reveals elevated AST/ALT in prior admissions; pt consents to hepatitis profile (concern for hepatitis C). (3) History of seizure Status: Chronic Plan: Per patient report. No seizure activity. This can be managed as an outpatient. Problem Qualifiers (1) Overdose: Qualified Code: T50.901D - Overdose, accidental or unintentional, subsequent encounter Betsy Membreno MD October 09, 2016 11:05 (2) IV drug abuse Status: Acute Plan: Chronic, multiple ED visits for IVDU-related infections or overdose. Plan: Director Of Financial Reporting when more awake on effects of drug use, offer resources Case mgmt consulted to assist with management and discharge planning Per EMR, she is on gabapentin and Paxil, unknown dose and unknown last use. Will hold both in addition to reported Keppra (3) History of seizure Status: Chronic Plan: Per patient report. She states she was on Keppra but this is not indicated in most recent EMR records from 06/2016. Plan: * Bedrest * Seizure precautions * Fall precautions * Ativan is ordered under [facility] protocol * Keppra level ordered (4) Fluids/Electrolytes/Nutrition/Prophylaxis Status: Acute Plan: Fluids: NS @ 100ml/hr Electrolytes: monitor and replete as needed Nutrition: NPO DVT Prophylaxis: Heparin 5000U subq q12hr/bilateral SCDs GI Prophylaxis: Not indicated Problem Qualifiers (1) Overdose: Qualified Code: T50.901A - Overdose, accidental or unintentional, initial encounter Betsy Membreno MD October 09, 2016 11:05
--- NOTE | 2016-10-09 12:12 | HHI.FPPN ---
Addendum to progress note ADDENDUM Reason for addendum: Additonal documentation Additional information Called DCF at [phone]. Spoke with Nellie. ID # [id number]. DCF accepted case. Reese Goff MD R1 October 09, 2016 12:12
--- NOTE | 2016-10-09 16:46 | EKG ---
Date Performed: 10/08/2016 Time Performed: 17:55:58 PTAGE: 35 years EKG: Sinus rhythm Borderline long QT BORDERLINE ECG NO PREVIOUS TRACING DOCTOR: Unique Love Interpretating Date/Time 10/09/2016 16:42:18
--- NOTE | 2016-10-09 16:46 | EKG ---
Date Performed: 10/09/2016 Time Performed: 04:02:55 PTAGE: 35 years EKG: Sinus rhythm PROLONGED QT INTERVAL Compared to prior tracing no significant change ABNORMAL ECG PREVIOUS TRACING : 10/09/2016 04.01 DOCTOR: Unique Love Interpretating Date/Time 10/09/2016 16:42:29
--- NOTE | 2016-10-11 16:27 | HHI.FPPN ---
Addendum to progress note ADDENDUM Reason for addendum: Additonal documentation Additional information Called the patient on multiple occasions in regards to an abnormal laboratory test with no answer at [phone]. Will have a letter mailed to the patient to the address on file outlining how to obtain her medical an laboratory records. Reese Goff MD R1 October 11, 2016 16:27
== END 2016-10-09 12:46 | disposition home or self-care (01) ==
LOC: NEPE 17:40 → NEDA 20:10 → NEPHCDU 22:55
PROVIDERS: ADMIT Family Medicine; ATTEND Family Medicine
DX: T40.1X1A Poisoning by heroin, accidental (unintentional), initial encounter (principal); F31.9 Bipolar disorder, unspecified; F41.9 Anxiety disorder, unspecified; I10 Essential (primary) hypertension; R56.9 Unspecified convulsions; F11.10 Opioid abuse, uncomplicated; F17.200 Nicotine dependence, unspecified, uncomplicated; M41.9 Scoliosis, unspecified; Z91.048 Other nonmedicinal substance allergy status; Z88.1 Allergy status to other antibiotic agents; Z88.8 Allergy status to other drugs, medicaments and biological substances; R94.31 Abnormal electrocardiogram [ECG] [EKG]
CPT/HCPCS: 80048; 80074; 80177; 80307; 82550; 82552; 82948; 83735; 84484; 85025; 85610; 93005; 96361; 96374; 99285; G0378; J2060; J2310; J7030

== ENCOUNTER 2017-01-23 17:36 | Emergency (ER) | payer MEDICAID ==
[~2017-01-23] VITALS: Ht 180.3 cm; Wt 86.5 kg
[~2017-01-23 17:36] MED LIST changes: -BACT800T5 PO; -DOXY100C PO; +NEUR100C PO; -TYLETAB34 PO
[2017-01-23 17:38] VITALS: BP 129/59; PULSE 90; RESP 20; TEMP 98.9; O2SAT 100
[2017-01-23] MEDS ORDERED: AZIT250T3 PO (18:01)
[2017-01-23] MEDS ORDERED: LORA-400 PO (18:01)
[2017-01-23] MEDS ORDERED: NAPR500T PO (18:01)
--- NOTE | 2017-01-23 18:01 | PD ---
HPI Chief Complaint: Cold / Flu Symptoms Time Seen by Provider: 17:45 Travel History International Travel<30 days: No Contact w/Intl Traveler<30days: No Traveled to known affect area: No History of Present Illness HPI This is a 36 year old female who presents with one week of multiple flu like symptoms including productive cough with green sputum, rhinorrhea, pressure in both ears, dizziness and sore throat, constant, moderate severity making it difficult for her to sleep at night. She denies any sick contacts. She does smoke cigarettes. She is that she had a fever of 101.8 at home. She's also had a fair amount of diarrhea. PFSH Past Medical History Asthma: Yes (as a child) Blood Disorders: No Bipolar Disorder: Yes Anxiety: Yes Depression: Yes Heart Rhythm Problems: No Cancer: No Cardiovascular Problems: No High Cholesterol: No Chest Pain: Yes Congestive Heart Failure: No COPD: No Cerebrovascular Accident: Yes (seizures) Diabetes: No Diminished Hearing: No Endocrine: No Genitourinary: Yes Hypertension: Yes Kidney Stones: Yes Musculoskeletal: Yes (SCOLIOSIS, spinal stenosis) Neurologic: Yes Psychiatric: Yes Reproductive: No Respiratory: No Immunizations Current: Yes Migraines: Yes Myocardial Infarction: No Seizures: Yes (last seizure 10/16/14) Sleep Apnea: No Thyroid Disease: No ?: Not LMP: 01/21/17 : 1 Para: 1 Past Surgical History Genitourinary Surgery: Yes (shunt to kidney placed and removed) Social History Alcohol Use: Yes (OCCASIONALLY) Tobacco Use: Yes (1 PPD) Substance Use: No Allergies-Medications (Allergen,Severity, Reaction): Coded Allergies: house dust (Unverified Allergy, Severe, 01/03/17) grass pollen (Unverified Allergy, Intermediate, 01/03/17) ciprofloxacin (Unverified Adverse Reaction, Severe, REACTS WITH HER DEPRESSION MEDS, 01/03/17) prednisone (Unverified Adverse Reaction, Severe, MAKES HER DEPRESSION WORSE, 01/03/17) diphenhydramine (Unverified Adverse Reaction, Intermediate, sleepy , ) denies any problems Reported Meds & Prescriptions Reported Meds & Active Scripts Active Reported Neurontin (Gabapentin) Unknown Strength Cap Unknown Dose PO HS Paxil (Paroxetine HCl) 30 Mg Tab 30 Mg PO DAILY Review of Systems Except as stated in HPI: all other systems reviewed are Neg Physical Exam Narrative GENERAL:Well appearing, no acute distress SKIN: Focused skin assessment warm and dry. HEAD: Atraumatic. Normocephalic. EYES: Pupils equal and round. No injection or drainage. ENT: Transparent Effusion behind both tympanic membranes with no dullness or erythema. Moist mucous membranes. No posterior pharyngeal erythema. NECK: Trachea midline. CARDIOVASCULAR: Regular rate and rhythm. No murmur appreciated. RESPIRATORY: Clear to auscultation. Breath sounds equal bilaterally. GASTROINTESTINAL: Abdomen soft, non-tender, nondistended. MUSCULOSKELETAL: No obvious deformities. NEUROLOGICAL: Awake and alert. No obvious cranial nerve deficits. Moving all extremities. PSYCHIATRIC: Appropriate mood and affect; insight and judgment normal. Data Data Last Documented VS Vital Signs Date Time Temp Pulse Resp B/P (MAP) Pulse Ox O2 Delivery O2 Flow Rate FiO2 01/23/17 17:38 98.9 90 20 129/59 (82) 100 Room Air MDM Medical Decision Making Medical Screen Exam Complete: Yes Emergency Medical Condition: Yes Interpretation(s) Afebrile, no tachycardia, normotensive Differential Diagnosis Viral syndrome, influenza, bronchitis, sinusitis Narrative Course This is a 36-year-old female who presents to the emergency department with multiple nonspecific symptoms suggestive of a viral syndrome. Given she smokes and has sputum production I think it's reasonable to put her on an antibiotic for bronchitis. I think she benefit from Sudafed for nasal congestion and that will help with her ear pain. She was also given naproxen for body aches. She denied a history of IV drug use to me but in the chart I do see a history of IV drug use in the past. At this time her vital signs are reassuring and I don't see any signs or symptoms of endocarditis don't think any diagnostics are warranted. Patient will be discharged home. I did discuss with the patient that as she is using IV drugs she is at risk for worsening infections and if she feels that all worse she should come back to the emergency department for recheck. She expressed understanding. Diagnosis Primary Impression: Bronchitis Referrals: [facility] Patient Instructions: General Instructions Additional Instructions: If you develop severe chest pain, shortness of breath, sweating, lightheadedness , dizziness or difficulty breathing return to the emergency department immediately. Followup with your primary care physician in 2-3 days if your symptoms are not resolved. Med/Other Pt SpecificInfo: Prescription(s) given Scripts Naproxen (Naproxen) 500 Mg Tab 500 MG PO BID Y for PAIN SCALE 4 TO 10, #15 TAB 0 Refills Prov: Patricia Montes De Oca MD 01/23/17 Loratadine-Pseudoephedrine 24 HR (Claritin-D 24 HR) 10-240 Mg Tab 1 TAB PO DAILY for Allergy Management for 28 Days, TAB 0 Refills Prov: Patricia Montes De Oca MD 01/23/17 Azithromycin (Azithromycin) 250 Mg Tab 250 MG PO DIRECTED for Infection, #6 TAB 0 Refills Take 2 tabs (500 mg) on day 1 then 1 tab daily x 4 days. Prov: Patricia Montes De Oca MD 01/23/17 Disposition: 01 DISCHARGE HOME Condition: Stable Patricia Montes De Oca MD Jan 23, 2017 18:01
== END 2017-01-23 18:49 | disposition home or self-care (01) ==
LOC: NEPD 17:36
DX: J40 Bronchitis, not specified as acute or chronic (principal); F17.200 Nicotine dependence, unspecified, uncomplicated
CPT/HCPCS: 99283

== ENCOUNTER 2017-04-28 16:27 | Emergency (ER) | payer MEDICAID ==
[~2017-04-28] VITALS: Ht 180.3 cm; Wt 75.0 kg
[~2017-04-28 16:27] MED LIST changes: +AZIT250T3 PO; +LORA-400 PO; +NAPR500T2 PO
[2017-04-28 16:38] VITALS: BP 135/93; PULSE 89; RESP 14; TEMP 98.1; O2SAT 100
[2017-04-28] MEDS ORDERED: CLON1 PO (16:47)
[2017-04-28] MEDS ORDERED: BUSP10TA PO (16:47)
[2017-04-28] MEDS ORDERED: GABA600T PO (16:47)
[2017-04-28] MEDS ORDERED: TRAZ100T10 PO (16:47)
[2017-04-28] MEDS ORDERED: SODIUM CHLORIDE 0.9% FLUSH 10 ML FLUSH IVF PRN (17:00)
[2017-04-28 17:23] LABS: AUTOMATED NEUTROPHIL # 6.4 TH/MM3 (1.8-7.7); BASOPHIL % 0.2 % (0.0-2.0); EOSINOPHIL # 0.1 TH/MM3 (0-0.4); EOSINOPHIL % 0.7 % (0.0-4.0); HEMATOCRIT 36.4 % (35.0-46.0); HEMO FLAGS DIFF FINAL; LYMPH % 14.9 % (9.0-44.0); LYMPHOCYTE # 1.2 TH/MM3 (1.0-4.8); MEAN CELL VOLUME 96.5 FL (80.0-100.0); MEAN CORPUSCULAR HEMOGLOBIN 32.5 PG (27.0-34.0); MEAN CORPUSCULAR HGB CONC 33.6 % (32.0-36.0); MONO % 5.7 % (0.0-8.0); NEUT % 78.5 % (16.0-70.0); PLATELET COUNT 200 TH/MM3 (150-450); RED BLOOD COUNT 3.77 MIL/MM3 (4.00-5.30); RED CELL DISTRIBUTION WIDTH 13.4 % (11.6-17.2); WHITE BLOOD COUNT 8.1 TH/MM3 (4.0-11.0)
--- NOTE | 2017-04-28 17:29 | PD ---
HPI Chief Complaint: OD/ Ingestion Time Seen by Provider: 16:50 Travel History International Travel<30 days: No Contact w/Intl Traveler<30days: No Traveled to known affect area: No History of Present Illness HPI 36-year-old female presents to emergency department via [facility] after an overdose starting heroin. He back administered 0.4mg Narcan and she woke up immediately. Patient has some tenderness on her chest wall secondary to CPR. Patient states that this was an unintentional overdose and she overdosed about 1 year ago as well. States she does use IV drugs and her last use was yesterday. She denies fever, chills, heart palpitations, shortness of breath, abdominal pain she has no other complaints today. Her medical history significant for chronic back pain and she follows [facility]. [facility] Past Medical History Asthma: Yes (as a child) Blood Disorders: No Bipolar Disorder: Yes Anxiety: Yes Depression: Yes Heart Rhythm Problems: No Cancer: No Cardiovascular Problems: No High Cholesterol: No Chest Pain: Yes Congestive Heart Failure: No COPD: No Cerebrovascular Accident: Yes (seizures) Diabetes: No Diminished Hearing: No Endocrine: No Genitourinary: Yes Hypertension: Yes Kidney Stones: Yes Musculoskeletal: Yes (SCOLIOSIS, spinal stenosis) Neurologic: Yes Psychiatric: Yes Reproductive: No Respiratory: No Immunizations Current: Yes Migraines: Yes Myocardial Infarction: No Seizures: Yes (last seizure 10/16/14) Sleep Apnea: No Thyroid Disease: No ?: Unknown LMP: april 2017 : 1 Para: 1 Past Surgical History Genitourinary Surgery: Yes (shunt to kidney placed and removed) Social History Alcohol Use: Yes (OCCASIONALLY) Tobacco Use: Yes (1 PPD) Substance Use: Yes (heroine ) Allergies-Medications (Allergen,Severity, Reaction): Coded Allergies: house dust (Unverified Allergy, Severe, 01/03/17) grass pollen (Unverified Allergy, Intermediate, 01/03/17) ciprofloxacin (Unverified Adverse Reaction, Severe, REACTS WITH HER DEPRESSION MEDS, 01/03/17) prednisone (Unverified Adverse Reaction, Severe, MAKES HER DEPRESSION WORSE, 01/03/17) diphenhydramine (Unverified Adverse Reaction, Intermediate, sleepy , ) denies any problems Reported Meds & Prescriptions Reported Meds & Active Scripts Active Reported Trazodone (Trazodone HCl) 100 Mg Tablet 200 Mg PO HS Buspirone (Buspirone HCl) 10 Mg Tab 10 Mg PO TID Klonopin (Clonazepam) 1 Mg Tab 1 Mg PO HS Gabapentin 600 Mg Tab 600 Mg PO TID Paxil (Paroxetine HCl) 30 Mg Tab 30 Mg PO DAILY Review of Systems Except as stated in HPI: all other systems reviewed are Neg Physical Exam Narrative GENERAL: Well-developed well-nourished in no apparent distress. Patient talking on her phone SKIN: Focused skin assessment warm/dry. HEAD: Atraumatic. Normocephalic. EYES: Pupils equal and round. No scleral icterus. No injection or drainage. ENT: No nasal bleeding or discharge. Mucous membranes pink and moist. NECK: Trachea midline. No JVD. CARDIOVASCULAR: Regular rate and rhythm. No murmur appreciated. RESPIRATORY: No accessory muscle use. Clear to auscultation. Breath sounds equal bilaterally. GASTROINTESTINAL: Abdomen soft, non-tender, nondistended. Hepatic and splenic margins not palpable. MUSCULOSKELETAL: No obvious deformities. No clubbing. No cyanosis. No edema. NEUROLOGICAL: Awake and alert. No obvious cranial nerve deficits. Motor grossly within normal limits. Normal speech. PSYCHIATRIC: Appropriate mood and affect; insight and judgment normal. Data Data Last Documented VS Vital Signs Date Time Temp Pulse Resp B/P (MAP) Pulse Ox O2 Delivery O2 Flow Rate FiO2 04/28/17 18:59 04/28/17 18:17 88 16 100 Room Air 04/28/17 17:10 2.00 04/28/17 16:38 98.1 Orders Orders Basic Metabolic Panel (Bmp) (04/28/17 16:50) Complete Blood Count With Diff (04/28/17 16:50) Urinalysis - C+S If Indicated (04/28/17 16:50) Iv Access Insert/Monitor (04/28/17 16:50) Ecg Monitoring (04/28/17 16:50) Oximetry (04/28/17 16:50) Sodium Chloride 0.9% Flush (Ns Flush) (04/28/17 17:00) Drug Screen, Random Urine (04/28/17 16:50) Ed Urine Pregnancytest Poc (04/28/17 16:50) Electrocardiogram (04/28/17 16:50) Potassium Chloride (Kcl) (04/28/17 18:00) Ed Discharge Order (04/28/17 18:44) Labs Laboratory Tests Test 04/28/17 17:00 White Blood Count 8.1 TH/MM3 Red Blood Count 3.77 MIL/MM3 Hemoglobin 12.2 GM/DL Hematocrit 36.4 % Mean Corpuscular Volume 96.5 FL Mean Corpuscular Hemoglobin 32.5 PG Mean Corpuscular Hemoglobin Concent 33.6 % Red Cell Distribution Width 13.4 % Platelet Count 200 TH/MM3 Mean Platelet Volume 8.9 FL Neutrophils (%) (Auto) 78.5 % Lymphocytes (%) (Auto) 14.9 % Monocytes (%) (Auto) 5.7 % Eosinophils (%) (Auto) 0.7 % Basophils (%) (Auto) 0.2 % Neutrophils # (Auto) 6.4 TH/MM3 Lymphocytes # (Auto) 1.2 TH/MM3 Monocytes # (Auto) 0.5 TH/MM3 Eosinophils # (Auto) 0.1 TH/MM3 Basophils # (Auto) 0.0 TH/MM3 CBC Comment DIFF FINAL Differential Comment Urine Color YELLOW Urine Turbidity CLEAR Urine pH 5.5 Urine Specific [place] 1.027 Urine Protein 30 mg/dL Urine Glucose (UA) 70 mg/dL Urine Ketones NEG mg/dL Urine Occult Blood NEG Urine Nitrite NEG Urine Bilirubin NEG Urine Urobilinogen 2.0 MG/DL Urine Leukocyte Esterase NEG Urine WBC 1 /hpf Urine Squamous Epithelial Cells 2 /hpf Urine Hyaline Casts 14 /lpf Urine Mucus MANY /lpf Microscopic Urinalysis Comment CULT NOT INDICATED Blood Urea Nitrogen 13 MG/DL Creatinine 0.71 MG/DL Random Glucose 93 MG/DL Calcium Level 7.7 MG/DL Sodium Level 139 MEQ/L Potassium Level 3.1 MEQ/L Chloride Level 104 MEQ/L Carbon Dioxide Level 26.8 MEQ/L Anion Gap 8 MEQ/L Estimat Glomerular Filtration Rate 94 ML/MIN Urine Opiates Screen POS Urine Barbiturates Screen NEG Urine Amphetamines Screen NEG Urine Benzodiazepines Screen NEG Urine Cocaine Screen POS Urine Cannabinoids Screen POS MDM Medical Decision Making Medical Screen Exam Complete: Yes Emergency Medical Condition: Yes Differential Diagnosis Heroin overdose, polysubstance abuse, IV drug use, metabolic disturbance Narrative Course 36-year-old female presents to emergency department via [facility] after an overdose starting heroin. He back administered 0.4mg Narcan and she woke up immediately. Patient has some tenderness on her chest wall secondary to CPR. Patient states that this was an unintentional overdose and she overdosed about 1 year ago as well. States she does use IV drugs and her last use was yesterday. She denies fever, chills, heart palpitations, shortness of breath, abdominal pain she has no other complaints today. Her medical history significant for chronic back pain and she follows [facility]. Vital signs stable Labs consistent poly-substance abuse. Mild hypokalemia- KCl administered. Laboratory Tests Test 04/28/17 17:00 White Blood Count 8.1 TH/MM3 Red Blood Count 3.77 MIL/MM3 Hemoglobin 12.2 GM/DL Hematocrit 36.4 % Mean Corpuscular Volume 96.5 FL Mean Corpuscular Hemoglobin 32.5 PG Mean Corpuscular Hemoglobin Concent 33.6 % Red Cell Distribution Width 13.4 % Platelet Count 200 TH/MM3 Mean Platelet Volume 8.9 FL Neutrophils (%) (Auto) 78.5 % Lymphocytes (%) (Auto) 14.9 % Monocytes (%) (Auto) 5.7 % Eosinophils (%) (Auto) 0.7 % Basophils (%) (Auto) 0.2 % Neutrophils # (Auto) 6.4 TH/MM3 Lymphocytes # (Auto) 1.2 TH/MM3 Monocytes # (Auto) 0.5 TH/MM3 Eosinophils # (Auto) 0.1 TH/MM3 Basophils # (Auto) 0.0 TH/MM3 CBC Comment DIFF FINAL Differential Comment Urine Color YELLOW Urine Turbidity CLEAR Urine pH 5.5 Urine Specific [place] 1.027 Urine Protein 30 mg/dL Urine Glucose (UA) 70 mg/dL Urine Ketones NEG mg/dL Urine Occult Blood NEG Urine Nitrite NEG Urine Bilirubin NEG Urine Urobilinogen 2.0 MG/DL Urine Leukocyte Esterase NEG Urine WBC 1 /hpf Urine Squamous Epithelial Cells 2 /hpf Urine Hyaline Casts 14 /lpf Urine Mucus MANY /lpf Microscopic Urinalysis Comment CULT NOT INDICATED Blood Urea Nitrogen 13 MG/DL Creatinine 0.71 MG/DL Random Glucose 93 MG/DL Calcium Level 7.7 MG/DL Sodium Level 139 MEQ/L Potassium Level 3.1 MEQ/L Chloride Level 104 MEQ/L Carbon Dioxide Level 26.8 MEQ/L Anion Gap 8 MEQ/L Estimat Glomerular Filtration Rate 94 ML/MIN Urine Opiates Screen POS Urine Barbiturates Screen NEG Urine Amphetamines Screen NEG Urine Benzodiazepines Screen NEG Urine Cocaine Screen POS Urine Cannabinoids Screen POS Patient to follow-up with [facility]. Patient is stable to return home. Advised to avoid illicit drugs as this may cause . Diagnosis Primary Impression: Heroin overdose Qualified Codes: T40.1X1A - Poisoning by heroin, accidental (unintentional), initial encounter Additional Impressions: Polysubstance abuse Hypokalemia Referrals: [facility] Additional Instructions: Follow up with your [facility] as soon as possible. Follow-up primary care physician within 2-3 days. Avoid illicit drugs as they may result in . Disposition: 01 DISCHARGE HOME Condition: Stable Denise Crabtree Apr 28, 2017 17:29
[2017-04-28 17:32] LABS: BLOOD, URINE NEG (NEG); COMMENT (UR) CULT NOT INDICATED; CULTURE IF INDICATED CULT NOT INDICATED; GLUCOSE,URINE 70 mg/dL (NEG); HYALINE CAST, URINE 14 /lpf (RARE); KETONE, URINE NEG (NEG); MUCUS URINE MANY /lpf (OCC); NITRITE,URINE NEG (NEG); PH, URINE 5.5 (5.0-8.5); SQUAMOUS EPITHELIAL CELL URINE 2 /hpf (0-5); URINE COLOR YELLOW (YELLW/STRAW)
[2017-04-28 17:51] LABS: BICARBONATE 26.8 MEQ/L (21.0-32.0); POTASSIUM 3.1 MEQ/L (3.5-5.1)
[2017-04-28] MEDS ORDERED: POTASSIUM CHLORIDE 10 MEQ CONTROLLED RELEASE TAB PO ONE (18:00)
[2017-04-28 18:17] VITALS: BP 135/93; PULSE 88; RESP 16; O2SAT 100
--- NOTE | 2017-04-28 19:26 | PD ---
Data Data Last Documented VS Vital Signs Date Time Temp Pulse Resp B/P (MAP) Pulse Ox O2 Delivery O2 Flow Rate FiO2 04/28/17 18:59 04/28/17 18:17 88 16 100 Room Air 04/28/17 17:10 2.00 04/28/17 16:38 98.1 Orders Orders Basic Metabolic Panel (Bmp) (04/28/17 16:50) Complete Blood Count With Diff (04/28/17 16:50) Urinalysis - C+S If Indicated (04/28/17 16:50) Iv Access Insert/Monitor (04/28/17 16:50) Ecg Monitoring (04/28/17 16:50) Oximetry (04/28/17 16:50) Sodium Chloride 0.9% Flush (Ns Flush) (04/28/17 17:00) Drug Screen, Random Urine (04/28/17 16:50) Ed Urine Pregnancytest Poc (04/28/17 16:50) Electrocardiogram (04/28/17 16:50) Potassium Chloride (Kcl) (04/28/17 18:00) Ed Discharge Order (04/28/17 18:44) Labs Laboratory Tests Test 04/28/17 17:00 White Blood Count 8.1 TH/MM3 Red Blood Count 3.77 MIL/MM3 Hemoglobin 12.2 GM/DL Hematocrit 36.4 % Mean Corpuscular Volume 96.5 FL Mean Corpuscular Hemoglobin 32.5 PG Mean Corpuscular Hemoglobin Concent 33.6 % Red Cell Distribution Width 13.4 % Platelet Count 200 TH/MM3 Mean Platelet Volume 8.9 FL Neutrophils (%) (Auto) 78.5 % Lymphocytes (%) (Auto) 14.9 % Monocytes (%) (Auto) 5.7 % Eosinophils (%) (Auto) 0.7 % Basophils (%) (Auto) 0.2 % Neutrophils # (Auto) 6.4 TH/MM3 Lymphocytes # (Auto) 1.2 TH/MM3 Monocytes # (Auto) 0.5 TH/MM3 Eosinophils # (Auto) 0.1 TH/MM3 Basophils # (Auto) 0.0 TH/MM3 CBC Comment DIFF FINAL Differential Comment Urine Color YELLOW Urine Turbidity CLEAR Urine pH 5.5 Urine Specific [place] 1.027 Urine Protein 30 mg/dL Urine Glucose (UA) 70 mg/dL Urine Ketones NEG mg/dL Urine Occult Blood NEG Urine Nitrite NEG Urine Bilirubin NEG Urine Urobilinogen 2.0 MG/DL Urine Leukocyte Esterase NEG Urine WBC 1 /hpf Urine Squamous Epithelial Cells 2 /hpf Urine Hyaline Casts 14 /lpf Urine Mucus MANY /lpf Microscopic Urinalysis Comment CULT NOT INDICATED Blood Urea Nitrogen 13 MG/DL Creatinine 0.71 MG/DL Random Glucose 93 MG/DL Calcium Level 7.7 MG/DL Sodium Level 139 MEQ/L Potassium Level 3.1 MEQ/L Chloride Level 104 MEQ/L Carbon Dioxide Level 26.8 MEQ/L Anion Gap 8 MEQ/L Estimat Glomerular Filtration Rate 94 ML/MIN Urine Opiates Screen POS Urine Barbiturates Screen NEG Urine Amphetamines Screen NEG Urine Benzodiazepines Screen NEG Urine Cocaine Screen POS Urine Cannabinoids Screen POS MDM Supervised Visit with NAYELI: Yes Narrative Course The history, exam, and medical decision-making in the associated midlevel provider note were completed with my assistance. I reviewed and agree with the findings presented. I attest that I had a [id number] encounter with the patient on the same day, and personally performed and documented my assessment and findings in the medical record. *My assessment and Findings: This is a 36-year-old female who presents to the emergency department having overdosed on opiates. She received CPR in the field and 0.4 of Narcan and then she woke. Labs are obtained which are reassuring. She is awake and alert currently, eating, talking with no recurrent respiratory distress. I think she can safely be discharged. Diagnosis Primary Impression: Heroin overdose Additional Impressions: Polysubstance abuse Hypokalemia Referrals: [facility] Patient Instructions: General Instructions, Hypokalemia (ED), Narcotic Abuse ( ED) Departure Forms: Tests/Procedures Additional Instruction: Follow up with your [facility] as soon as possible. Follow-up primary care physician within 2-3 days. Avoid illicit drugs as they may result in . Disposition: 01 DISCHARGE HOME Condition: Stable Patricia Montse De Oca MD Apr 28, 2017 19:26
--- NOTE | 2017-04-29 12:48 | EKG ---
Date Performed: 04/28/2017 Time Performed: 16:55:39 PTAGE: 36 years EKG: Sinus rhythm Small inferior Q-waves of undetermined significance PREVIOUS TRACING : 10/09/2016 04.02 Since previous tracing, QT interval is now normal. DOCTOR: Deandre Torre Interpretating Date/Time 04/29/2017 12:46:28
== END 2017-04-28 19:05 | disposition home or self-care (01) ==
LOC: NEPC 16:27
DX: T40.1X1A Poisoning by heroin, accidental (unintentional), initial encounter (principal); E87.6 Hypokalemia; F19.10 Other psychoactive substance abuse, uncomplicated; M54.9 Dorsalgia, unspecified; G89.29 Other chronic pain; F31.9 Bipolar disorder, unspecified; F41.9 Anxiety disorder, unspecified; M41.9 Scoliosis, unspecified; R56.9 Unspecified convulsions
CPT/HCPCS: 80048; 80307; 81001; 84703; 85025; 93005; 99285

== ENCOUNTER 2017-10-07 10:59 | Emergency (ER) | END 2017-10-07 12:21 | disposition home or self-care (01) | DX: L02.419 Cutaneous abscess of limb, unspecified (principal); F11.10 Opioid abuse, uncomplicated; R56.9 Unspecified convulsions; F41.8 Other specified anxiety disorders; I10 Essential (primary) hypertension; M41.9 Scoliosis, unspecified; F17.210 Nicotine dependence, cigarettes, uncomplicated; Z88.1 Allergy status to other antibiotic agents; Z87.442 Personal history of urinary calculi; Z88.8 Allergy status to other drugs, medicaments and biological substances ==